=== PATIENT | male | born 2000 | race Two or more races ===

== ENCOUNTER 2025-05-12 21:17 | Emergency (ER) | payer SELFPAY ==
[2025-05-12 21:19] VITALS: BMI 29.8
[2025-05-12 21:50] VITALS: BP 137/83; PULSE 101; RESP 18; TEMP 37.1; O2SAT 96
--- NOTE | 2025-05-12 22:28 | PD.EDSKIN ---
ED Skin Abcess FB-RME/HPI General Stated complaint: SPIDER BITE Time Seen by Provider: 05/12/25 21:26 Source: patient Arrival date/time: 05/12/25 21:17 It is a case of 24-year-old male who came in in the emergency room due to spider bite on the fifth toe right foot with mild redness no discharge no discoloration 1 hour prior to arrival in the emergency room patient denies any foot pain or leg pain denies any fever or chills patient tetanus shot is up-to-date Limitations: no limitations Related Data Previous Rx's ?Medication ?Instructions ?Recorded doxycycline monohydrate 100 mg 100 mg PO BID 10 days #20 caps 05/12/25 capsule mupirocin 2 % topical ointment 1 applic topical BID #15 grams 05/12/25 Allergies Allergy/AdvReac Type Severity Reaction Status Date / Time shrimp Allergy Verified 05/12/25 21:23 Review of Systems Review of Systems Systems Reviewed: All systems reviewed, normal except as documented Constitutional Constitutional: Reports system reviewed and no additional complaints, except as documented and Reports as per HPI Cardiovascular Cardiovascular: Reports system reviewed and no additional complaints, except as documented and Reports as per HPI Respiratory Respiratory: Reports system reviewed and no additional complaints, except as documented and Reports as per HPI Gastrointestinal Gastrointestinal: Reports system reviewed and no additional complaints, except as documented and Reports as per HPI Genitourinary Genitourinary: Reports system reviewed and no additional complaints, except as documented and Reports as per HPI Musculoskeletal Musculoskeletal: Reports system reviewed and no additional complaints, except as documented and Reports as per HPI Integumentary/Breasts Skin/Breast: Reports other (Skin redness) Neurologic Neurologic: Reports system reviewed and no additional complaints, except as documented and Reports as per HPI Past Medical History Social History SMOKING STATUS: Never smoker ED Exam General Limitations: Present no limitations General appearance: Present alert, in no apparent distress and other (Patient is awake alert oriented not in distress nontoxic looking) Head Head exam: Present atraumatic, normocephalic and normal inspection Eye Eye exam: Present normal appearance, PERRL and EOMI ENT ENT exam: Present normal exam, normal oropharynx and mucous membranes moist Neck Neck exam: Present normal inspection, full ROM and trachea midline; Absent tenderness or meningismus Chest Chest inspection: Present normal inspection and symmetric chest wall rise Respiratory Respiratory exam: Present normal lung sounds bilaterally; Absent respiratory distress, wheezes, stridor, accessory muscle use or prolonged expiratory phase Cardiovascular Cardiovascular exam: Present regular rate, normal rhythm and normal heart sounds; Absent bradycardia, tachycardia, irregular rhythm, systolic murmur or diastolic murmur Abdominal Exam Abdominal exam: Present soft and normal bowel sounds Extremities Exam Extremities exam: Present normal inspection and full ROM Back Exam Back exam: Present normal inspection and full ROM Neurological Exam Neurological exam: Present alert, oriented X3, CN II-XII intact, normal gait and reflexes normal; Absent motor sensory deficit Psychiatric Psychiatric exam: Present normal affect and normal mood Skin Skin exam: Present warm, dry, intact, normal color and other (Patient sustained a approximately 1 cm redness on the fifth toe right foot with spider bite no discharge no abscess no fluctuance not indurated no discoloration ROM intact neurovascular intact) Course Quality Measures none Orders Category Date Time Status Dexamethasone Inj [Decadron Inj] Med 05/12/25 21:55 Discontinued 10 mg IM X1 ONE DiphenhydrAMINE [Benadryl] Med 05/12/25 21:55 Discontinued 25 mg PO X1 ONE Vital Signs Vital signs: Vital Signs Temperature 98.8 F 05/12/25 21:50 Pulse Rate 101 H 05/12/25 21:50 Respiratory Rate 18 05/12/25 21:50 Blood Pressure 137/83 H 05/12/25 21:50 Pulse Oximetry (%) 96 05/12/25 21:50 Oxygen Delivery Method Room Air 05/12/25 21:50 Patient is afebrile not tachycardic not tachypneic not hypoxic BP stable Skin / Abscess / Foreign Body MDM Narrative MDM Narrative:: It is a case of 24-year-old male who came in in the emergency room due to spider bite on the fifth toe right foot with mild redness no discharge no discoloration 1 hour prior to arrival in the emergency room patient denies any foot pain or leg pain denies any fever or chills patient tetanus shot is up-to-date physical examination patient is awake alert oriented not in distress nontoxic looking no shortness of breath no drooling of saliva no signs and symptoms of angioedema or anaphylaxis patient skin Patient sustained a approximately 1 cm redness on the fifth toe right foot with spider bite no discharge no abscess no fluctuance not indurated no discoloration ROM intact neurovascular intact at this point patient based on my physical examination and history patient symptoms suggestive of allergy to the skin by dust patient was given Benadryl and dexamethasone which improved the redness denies any pain at the time of exam patient was discharged with doxycycline and mupirocin to prevent infection and advised to take Benadryl as needed for itchiness and tightness patient understood for any worsening symptoms or any emergent concern return to the emergency room immediately or call 911 Patient was discharged with comfortable condition walking with stable gait. Patient verbalized no further complains explained diagnosis and answered patient question. Patient is comfortable with the proposed management plan including the need to follow up with his/her primary care physician and any specialist if applicable Discussed patient for any urgent condition or worsening sx, He/She needed to go to emergency room immediately or call 911. Patient acknowledge the responsibility to follow up as instructed and to monitor her/his symptoms. For any persistence of the symptoms for more than 3-5 days return precaution advised. Discussed the result of the test and was given printed discharge instruction Patient data External records reviewed:: [facility] previous records Clinical information provided by:: patient Social determinants that could affect healthcare access:: none Patient has the following chronic illnesses:: None How is presenting disease/condition affected by chronic disease/condition?: no chronic disease Evaluation data The following diagnostics were reviewed and interpreted by me:: other (specify) (None) Lab and/or radiology exams considered but not ordered:: none Interpretation Summary: None Medications / Prescriptions Medications or Prescriptions considered but not ordered:: Reviewed Medication administrations:: Medication Administration History Discontinued Medications Dexamethasone Sodium Phosphate (Dexamethasone Sod Phos Inj 10 Mg/Ml Vial) 10 mg IM X1 ONE Stop: 05/12/25 21:56 Diphenhydramine HCl (Diphenhydramine 25 Mg Capsule) 25 mg PO X1 ONE Stop: 05/12/25 21:56 Reviewed Consultations Consultation(s) initiated? (list below): No Diagnosis Skin/Abscess Differential Diagnosis: abscess of skin or subcutaneous tissue, cellulitis, insect bites and contact dermatitis Most likely diagnosis given after review of the tests above:: Spider bite Admission Indicated Admission indicated?: not indicated Explain why admission is indicated or not indicated:: Not indicated Admission Request Was there a request for admission?: No Admission Attestation Admission request attestation: Not indicated Disposition Plan Disposition Plan: Discharge Discharge Attestation Discharge Attestation: The patient and all family members were given an opportunity to ask questions and understood the discharge instructions. Discharge instructions specifically effects, indications for sooner follow up or return to the emergency department, and the expected course of current diagnosis. Patient condition: Stable Discharge Plan Plan Patient Disposition: HOME (Self Care) Patient condition on transfer: Stable Prescriptions/Referrals Prescriptions/Med Rec: New doxycycline monohydrate 100 mg capsule 100 mg PO BID 10 Days Qty: 20 0RF mupirocin 2 % ointment 1 applic topical BID Qty: 15 0RF Problem List Clinical Impression: Nonvenomous spider bite Patient/Caregiver Discharge Instructions Education Materials: Insect Bites and Stings, ED Spider Bite, Non-Poisonous Additional Instructions: Follow-up with your primary care physician in 2 days for reevaluation worsening symptoms or any emergent concerns such as redness swelling discharge from the wound discoloration pain fever chills return to the emergency room immediately or call 911 keep the area clean and dry finish the course of antibiotic you can take Benadryl as needed for itchiness or redness Print Language: [place] Stand Alone Forms: Nehal Award Info., Patient Portal Info Letter PA/SAP BI DEVELOPER Supervising Physician PA/BRIANNA Supervising Physician: dr khalil
== END 2025-05-12 23:07 | disposition home or self-care (01) ==
LOC: SERX 23:09
PROVIDERS: Emergency Provider Emergency Medicine
DX: S90.464A Insect bite (nonvenomous), right lesser toe(s), initial encounter (principal); W57.XXXA Bitten or stung by nonvenomous insect and other nonvenomous arthropods, initial encounter
CPT/HCPCS: 96372; 99283; J1100; A9270